=== PATIENT | male | born 1960 | race American Indian/Alaskan Native ===

== ENCOUNTER 2017-08-31 14:33 | Emergency (ER) | payer OTHER ==
[2017-08-31 14:44] VITALS: BP 120/90
--- NOTE | 2017-08-31 15:46 | Emergency Department Report ---
ED Fall HPI - General Chief Complaint: Fall Stated Complaint: BACK AND LEG PAIN DUE TO FALL Time Seen by Provider: 08/31/17 15:41 Source: patient, EMS Mode of arrival: Ambulatory - History of Present Illness Initial Comments: 56-year-old male past medical history bladder cancer hypertension presents for complaint of neck pain and headache and lower back pain and left shoulder pain status post mechanical fall. Patient states that while taking a shower he sat at the edge of the tub and slipped and fell backward onto bathroom floor. Patient hit the back of his head and the back of his neck on ground. Patient complaining of pain and stated areas. Patient is currently awake alert and oriented 3 fully lucid not in acute distress. States he was assisted by family member as he was dazed for several minutes after fall. Denies sustaining any lacerations. Patient is awake alert and oriented 3. MD Complaint: fall -: This morning Severity: moderate Context: tripped/slipped - Related Data Previous Rx's Medication Instructions Recorded Last Taken Type Acetaminophen/Codeine [Tylenol 1 tab PO Q6H PRN #10 tab 08/31/17 Unknown Rx /Codeine # 3 tab] Ibuprofen [Motrin] 600 mg PO Q8H PRN #20 tablet 08/31/17 Unknown Rx Allergies Allergy/AdvReac Type Severity Reaction Status Date / Time morphine Allergy Swelling Verified 08/31/17 14:38 ED Review of Systems ROS: Stated complaint: BACK AND LEG PAIN DUE TO FALL Other details as noted in HPI Constitutional: denies: chills, fever Eyes: denies: eye pain, eye discharge, vision change ENT: denies: ear pain, throat pain Respiratory: denies: cough, shortness of breath, wheezing Cardiovascular: denies: chest pain, palpitations Endocrine: no symptoms reported Gastrointestinal: denies: abdominal pain, nausea, diarrhea Genitourinary: denies: urgency, dysuria Musculoskeletal: denies: back pain, joint swelling, arthralgia Skin: denies: rash, lesions Neurological: denies: headache, weakness, paresthesias Psychiatric: denies: anxiety, depression Hematological/Lymphatic: denies: easy bleeding, easy bruising ED Past Medical Hx - Past Medical History Previous Medical History?: Yes Hx Hypertension: Yes Hx of Cancer: Yes (bladder) - Surgical History Past Surgical History?: Yes Additional Surgical History: Bladder tumors removed, Insertion of medication for bladder cancer - Social History Smoking Status: Current Every Day Smoker Substance Use Type: Prescribed - Medications Home Medications: Home Medications Medication Instructions Recorded Confirmed Last Taken Type Acetaminophen/Codeine [Tylenol 1 tab PO Q6H PRN #10 tab 08/31/17 Unknown Rx /Codeine # 3 tab] Ibuprofen [Motrin] 600 mg PO Q8H PRN #20 tablet 08/31/17 Unknown Rx ED Physical Exam - General Limitations: No Limitations General appearance: alert, in no apparent distress - Head Head exam: Present: atraumatic, normocephalic - Eye Eye exam: Present: normal appearance, PERRL, EOMI - ENT ENT exam: Present: mucous membranes moist - Neck Neck exam: Present: normal inspection, full ROM (neck flexion and extension intact) - Respiratory Respiratory exam: Present: normal lung sounds bilaterally. Absent: respiratory distress - Cardiovascular Cardiovascular Exam: Present: regular rate, normal rhythm. Absent: systolic murmur, diastolic murmur, rubs, gallop - GI/Abdominal GI/Abdominal exam: Present: soft, normal bowel sounds - Rectal Rectal exam: Present: deferred - Extremities Exam Extremities exam: Present: normal inspection - Expanded Upper Extremity Exam Left Shoulder Exam: Present: normal inspection, full ROM Upper Arm exam: Present: normal inspection, full ROM Elbow exam: Present: normal inspection, full ROM Forearm Wrist exam: Present: normal inspection, full ROM Hand Wrist exam: Present: normal inspection, full ROM - Back Exam Back exam: Present: normal inspection - Neurological Exam Neurological exam: Present: alert, oriented X3, CN II-XII intact, normal gait - Expanded Neurological Exam Expanded Patient oriented to: Present: person, place, time Sensory exam: Upper Extremity Light Touch: Normal, Lower Extremity Light Touch: Normal Motor strength exam: RUE: 5, LUE: 5, RLE: 5, LLE: 5 Best Eye Response (Karthik): (4) open spontaneously Best Motor Response (Karthik): (6) obeys commands Best Verbal Response (Karthik): (5) oriented [place] Total: 15 - Psychiatric Psychiatric exam: Present: normal affect, normal mood - Skin Skin exam: Present: warm, dry, intact, normal color. Absent: rash ED Course Vital Signs 08/31/17 14:38 Temperature 98 F Pulse Rate 76 Respiratory 18 Rate Blood Pressure 120/90 O2 Sat by Pulse 96 Oximetry ED Medical Decision Making - Medical Decision Making A/P: Musculoskeletal pain, contusion, minor head injury 1-x-rays and CT show no fracture 2-patient has no signs of neurological deficits on exam 3-short course analgesics 4- follow up with primary care Critical care attestation.: If time is entered above; I have spent that time in minutes in the direct care of this critically ill patient, excluding procedure time. ED Disposition Clinical Impression: Musculoskeletal pain Minor head injury without loss of consciousness Qualifiers: Encounter type: initial encounter Qualified Code(s): S09.90XA - Unspecified injury of head, initial encounter Disposition: TO HOME OR SELFCARE Is pt being admited?: No Does the pt Need Aspirin: No Condition: Stable Instructions: Concussion (ED), Minor Head Injury (ED), Musculoskeletal Pain (ED ) Prescriptions: Acetaminophen/Codeine [Tylenol /Codeine # 3 tab] 1 tab PO Q6H PRN #10 tab PRN Reason: Pain , Severe (7-10) Ibuprofen [Motrin] 600 mg PO Q8H PRN #20 tablet PRN Reason: Pain Referrals: [facility] [Provider Group] - 3-5 Days TERRANCE ESQUIVEL MD [Staff Physician] - 3-5 Days Time of Disposition: 19:02
[2017-08-31] MEDS ORDERED: PERCOCET 5/325 PO ONE (15:53)
--- NOTE | 2017-08-31 16:47 | Cat Scan Report ---
FINAL REPORT PROCEDURE: CT head without contrast. TECHNIQUE: Computerized tomography of the head was performed without contrast material. HISTORY: Headache after falling. COMPARISON: No prior studies are available for comparison. FINDINGS: The ventricles are normal in size. The gardner matter and white matter appear normal. There are no mass lesions. There is no intracranial hemorrhage. The calvarium appears intact. The mastoid air cells and visualized paranasal sinuses are clear. IMPRESSION: Normal study.
--- NOTE | 2017-08-31 17:10 | Cat Scan Report ---
FINAL REPORT PROCEDURE: CT cervical spine without contrast. TECHNIQUE: Computerized tomography of the cervical spine was performed from the skull base to T1 without contrast material. HISTORY: Neck pain after falling. COMPARISON: No prior studies are available for comparison. FINDINGS: The cervical vertebrae have normal height and alignment. There are no fractures. There is no subluxation. There is moderate disc space narrowing at C3-4, C4-5 and C5-6. There are small vertebral body osteophytes in the mid cervical spine. The spinal canal appears adequately patent. The facet joints appear satisfactory. The neural foramina appear adequately patent. The prevertebral soft tissues have normal thickness. There are cystic changes in both lung apices suggesting emphysema. IMPRESSION: Degenerative disc disease as described. No evidence of acute cervical spine injury. Cystic changes in both lung apices.
--- NOTE | 2017-08-31 18:33 | XRay Report ---
FINAL REPORT PROCEDURE: Lumbar spine. TECHNIQUE: Three views. HISTORY: Lower back pain. COMPARISON: No prior studies are available for comparison. FINDINGS: The lumbar vertebrae have normal height and alignment. There are no fractures. There is no spondylolisthesis. There is moderate disc space narrowing at L5-S1. The sacrum and sacroiliac joints are unremarkable. IMPRESSION: Degenerative disc disease at L5-S1.
--- NOTE | 2017-08-31 18:38 | XRay Report ---
FINAL REPORT PROCEDURE: XR SHOULDER 2+V LT left shoulder. TECHNIQUE: Three views. HISTORY: Left shoulder pain. COMPARISON: No prior studies are available for comparison. FINDINGS: The bones appear intact without fracture or dislocation. The joint spaces appear normal. The soft tissues are unremarkable. IMPRESSION: Normal study.
== END 2017-08-31 19:36 | disposition home or self-care (01) ==
LOC: ED 14:33
DX: S09.90XA Unspecified injury of head, initial encounter (principal); M79.1 Myalgia; I10 Essential (primary) hypertension; Z85.51 Personal history of malignant neoplasm of bladder; F17.200 Nicotine dependence, unspecified, uncomplicated; Z88.6 Allergy status to analgesic agent; W18.2XXA Fall in (into) shower or empty bathtub, initial encounter; Y93.E1 Activity, personal bathing and showering; Y99.8 Other external cause status; Y92.89 Other specified places as the place of occurrence of the external cause
CPT/HCPCS: 70450; 72100; 72125

== ENCOUNTER 2019-10-29 03:11 | Emergency (ER) | payer OTHER ==
--- NOTE | 2019-10-29 04:57 | XRay Report ---
CLINICAL DATA: fall TECHNICAL DATA: AP and lateral views lumbar spine. FINDINGS: The bone mineralization is normal. Vertebral body heights are normal. Intervertebral disc spaces are well maintained. Pedicles and spinous processes are normal in alignment. SI joints and sacrum are nor mal. IMPRESSION: Normal examination lumbar spine. Signer Name: Macario Peters MD Signed: 10/29/2019 4:52 AM Workstation Name: [id number]
--- NOTE | 2019-10-29 05:00 | Cat Scan Report ---
CT HEAD WITHOUT CONTRAST HISTORY: fall, injury COMPARISON: None TECHNIQUE: CT imaging of the head was performed in the axial, sagittal, and coronal projections and bone algori thm in axial projection in the soft tissue algorithm. All CT scans at this location are performed using CT dose reduction for ALARA by means of automated e xposure control. CONTRAST: 08/31/2017 FINDINGS: Cerebral and Cerebellar Hemispheres: Mild diffuse cerebral atrophy is present. No evidence of mass or mass effect. No midline shift. No acute hemorrhage. No acute cortical infarction. No extra-axial fluid collection. Ventricles: Normal in size and configuration for age. Osseous Structures: No significant abnormality. Visualized Paranasal Sinuses: No significant abnormality. Additional Findings: None IMPRESSION: 1. No acute intracranial abnormality. NOTE: Acute infarct may not be visible by noncontrast CT. Signer Name: Macario Peters MD Signed: 10/29/2019 4:55 AM Workstation Name: [id number]
--- NOTE | 2019-10-29 05:03 | Cat Scan Report ---
CLINICAL DATA: fall, injury TECHNICAL DATA: CT imaging of the cervical spine was performed in the axial, sagittal, and coronal projections and santosh ne algorithm in axial projection in the soft tissue algorithm. All CT scans at this location are performed using CT dose reduction for ALARA by means of automated e xposure control. FINDINGS: The ring of C1 is normal. The odontoid is normal. There is no evidence of an offset. There is no e vidence of a fracture. However, degenerative changes are present with narrowing of the C1 odontoid j unction. The spinal canal is well maintained. C2-C3: The spinal canal is well maintained. The neural foramina are normal. The vertebral bodies a re normal. The posterior elements are intact. There is no evidence of a fracture. C3-C4: Moderate intervertebral disc space narrowing is present with anterior and posterior osteophyt es. The spinal canal is well maintained. Moderate narrowing neural foraminal disease on the left. Th e vertebral bodies are normal. The posterior elements are intact. There is no evidence of a fractur e C4-C5: Moderate intervertebral disc space narrowing is present with anterior and posterior osteophyt es. The spinal canal is well maintained. The neural foramina are normal. The vertebral bodies are normal. The posterior elements are intact. There is no evidence of a fracture C5-C6: Moderate intervertebral disc space narrowing is present with anterior and posterior osteophyte s. The spinal canal is well maintained. The neural foramina are normal. The vertebral bodies are n ormal. The posterior elements are intact. There is no evidence of a fracture. C6-C7: The spinal canal is well maintained. The neural foramina are normal. The vertebral bodies a re normal. The posterior elements are intact. There is no evidence of a fracture. C7-T1: The spinal canal is well maintained. The neural foramina are normal. The vertebral bodies a re normal. The posterior elements are intact. There is no evidence of a fracture. IMPRESSION: No acute traumatic abnormality. Degenerative changes as noted. Signer Name: Macario Peters MD Signed: 10/29/2019 4:58 AM Workstation Name: [id number]
--- NOTE | 2019-10-29 06:38 | Emergency Department Report ---
HPI - General Chief Complaint: Fall Time Seen by Provider: 10/29/19 06:09 - HPI HPI: This is a 58-year-old male who presents to the emergency department after falling in the bathtub last night. The patient says he slipped and fell backwards. He did hit his head but denies loss of consciousness. Patient complains of pain to the lower back that radiates down both of his legs to the knees. He denies any problems with bowel or bladder, numbness or paresthesias or any neurological deficits. He denies any obvious deformities. Patient has a history of bladder cancer in remission, hypertension. He has not taken anything for symptoms prior to presentation. Patient arrived here about 3 hours prior to my shift starting and is already had some images obtained. At the time of my examination the patient had to use the restroom and was seen getting up and walking to the bathroom without any signs of instability. ED Past Medical Hx - Past Medical History Previous Medical History?: Yes Hx Hypertension: Yes Hx of Cancer: Yes (bladder ca in remission) - Surgical History Past Surgical History?: Yes Additional Surgical History: Bladder tumors removed, Insertion of medication for bladder cancer - Social History Smoking Status: Never Smoker Substance Use Type: None - Medications Home Medications: Home Medications Medication Instructions Recorded Confirmed Last Taken Type Acetaminophen/Codeine [Tylenol 1 tab PO Q6H PRN #10 tab 08/31/17 Unknown Rx /Codeine # 3 tab] Ibuprofen [Motrin 600 MG tab] 600 mg PO Q8H PRN #20 tablet 10/29/19 Unknown Rx ED Review of Systems ROS: Stated complaint: FALL IN TUB Other details as noted in HPI Comment: All other systems reviewed and negative Constitutional: denies: chills, fever Eyes: denies: eye pain, vision change ENT: denies: ear pain, throat pain Respiratory: denies: cough, shortness of breath Cardiovascular: denies: chest pain, palpitations Gastrointestinal: denies: abdominal pain, vomiting Genitourinary: denies: dysuria, discharge Musculoskeletal: back pain, arthralgia, myalgia Skin: denies: rash, lesions Neurological: denies: weakness, numbness, paresthesias Physical Exam - Physical Exam Vital Signs: Vital Signs 10/29/19 03:16 Temperature 97.8 F Pulse Rate 75 Respiratory 16 Rate Blood Pressure 132/102 O2 Sat by Pulse 96 Oximetry Physical Exam: GENERAL: The patient is well-developed well-nourished. HENT: Normocephalic. Atraumatic. Patient has moist mucous membranes. EYES: Extraocular motions are intact. NECK: Supple. Trachea is midline. No tenderness to palpation. CHEST/LUNGS: Clear to auscultation. There is no respiratory distress noted. HEART/CARDIOVASCULAR: Regular. There is no tachycardia. There is no murmur. ABDOMEN: Abdomen is soft, nontender. Patient has normal bowel sounds. There is no abdominal distention. SKIN: Skin is warm and dry. NEURO: The patient is awake, alert, and oriented. The patient is cooperative. The patient has no focal neurologic deficits. Normal speech. MUSCULOSKELETAL: There is some tenderness to palpation to compression of the pelvis but otherwise no acute deformity. There is no limitation range of motion. BACK: There is both midline and bilateral paraspinal lumbar tenderness to palpation. ED Course Vital Signs 10/29/19 03:16 Temperature 97.8 F Pulse Rate 75 Respiratory 16 Rate Blood Pressure 132/102 O2 Sat by Pulse 96 Oximetry ED Medical Decision Making - Radiology Data Radiology results: report reviewed, image reviewed interpreted by me: X-ray of the bilateral femur, pelvis and lumbar spines do not show any fractures, dislocations, subluxation, or any acute process. CT HEAD WITHOUT CONTRAST HISTORY: fall, injury COMPARISON: None TECHNIQUE: CT imaging of the head was performed in the axial, sagittal, and coronal projections and bone algorithm in axial projection in the soft tissue algorithm. All CT scans at this location are performed using CT dose reduction for ALARA by means of automated exposure control. CONTRAST: 08/31/2017 FINDINGS: Cerebral and Cerebellar Hemispheres: Mild diffuse cerebral atrophy is present. No evidence of mass or mass effect. No midline shift. No acute hemorrhage. No acute cortical infarction. No extra-axial fluid collection. Ventricles: Normal in size and configuration for age. Osseous Structures: No significant abnormality. Visualized Paranasal Sinuses: No significant abnormality. Additional Findings: None IMPRESSION: 1. No acute intracranial abnormality. CT imaging of the cervical spine was performed in the axial, sagittal, and coronal projections and bone algorithm in axial projection in the soft tissue algorithm. All CT scans at this location are performed using CT dose reduction for ALARA by means of automated exposure control. FINDINGS: The ring of C1 is normal. The odontoid is normal. There is no evidence of an offset. There is no evidence of a fracture. However, degenerative changes are present with narrowing of the C1 odontoid junction. The spinal canal is well maintained. C2-C3: The spinal canal is well maintained. The neural foramina are normal. The vertebral bodies are normal. The posterior elements are intact. There is no evidence of a fracture. C3-C4: Moderate intervertebral disc space narrowing is present with anterior and posterior osteophytes. The spinal canal is well maintained. Moderate narrowing neural foraminal disease on the left. The vertebral bodies are normal. The posterior elements are intact. There is no evidence of a fracture C4-C5: Moderate intervertebral disc space narrowing is present with anterior and posterior osteophytes. The spinal canal is well maintained. The neural foramina are normal. The vertebral bodies are normal. The posterior elements are intact. There is no evidence of a fracture C5-C6: Moderate intervertebral disc space narrowing is present with anterior and posterior osteophytes. The spinal canal is well maintained. The neural foramina are normal. The vertebral bodies are normal. The posterior elements are intact. There is no evidence of a fracture. C6-C7: The spinal canal is well maintained. The neural foramina are normal. The vertebral bodies are normal. The posterior elements are intact. There is no evidence of a fracture. C7-T1: The spinal canal is well maintained. The neural foramina are normal. The vertebral bodies are normal. The posterior elements are intact. There is no evidence of a fracture. IMPRESSION: No acute traumatic abnormality. Degenerative changes as noted. - Medical Decision Making This patient presents to the emergency department with a complaint of some low back pain radiating down the bilateral legs after a slip and fall in the bathtub. Patient had a CT scan of the head and cervical spine that was completed prior to my shift starting this morning but they resulted as negative for any fracture, subluxation, bleed, shift, mass, ischemia, or any other acute process. X-rays were also done of the lumbar spine, bilateral femur and pelvis that also did not show any fracture, dislocation, subluxation, or any acute processes. The patient was seen ambulatory in the emergency department and both appears and feels stable. Vital signs have been reassuring throughout his ED course. He will be discharged home to follow-up with primary care and is also been given referrals for both an orthopedist and local neurosurgery. He will return to the emergency department with any worsening of his symptoms or with any acute distress. Critical Care Time: No Critical care attestation.: If time is entered above; I have spent that time in minutes in the direct care of this critically ill patient, excluding procedure time. ED Disposition Clinical Impression: Bilateral leg pain Fall in bathtub Qualifiers: Encounter type: initial encounter Qualified Code(s): W18.2XXA - Fall in (into) shower or empty bathtub, initial encounter Back pain Qualifiers: Back pain location: low back pain Chronicity: unspecified Back pain laterality: bilateral Sciatica presence: with sciatica Sciatica laterality: bilateral sciatica Qualified Code(s): M54.42 - Lumbago with sciatica, left side; M54.41 - Lumbago with sciatica, right side Closed head injury Qualifiers: Encounter type: initial encounter Qualified Code(s): S09.90XA - Unspecified injury of head, initial encounter Disposition: TO HOME OR SELFCARE Is pt being admited?: No Condition: Stable Instructions: Sciatica (ED), Arthralgia (ED), Back Pain (ED), Fall Prevention (ED) Additional Instructions: Please follow-up with your primary care physician in the next few days. Return to the emergency department with any worsening of your symptoms or with any acute distress. I have given you a referral for 2 different local orthopedic groups, Dr. Tapia and [facility], to follow-up regarding your back and leg pains. I have also given you a referral for a local neurosurgeon, Dr. Wilder, who can also evaluate you for your back pains. Prescriptions: Ibuprofen [Motrin 600 MG tab] 600 mg PO Q8H PRN #20 tablet PRN Reason: Pain Referrals: [facility] [Primary Care Provider] - 3-5 Days ROWENA TAPIA MD [Staff Physician] - 3-5 Days [facility] [Provider Group] - 3-5 Days ANAMARIA CALZADA II, MD [Staff Physician] - 3-5 Days Time of Disposition: 07:33
[2019-10-29 07:05] VITALS: BP 113/82
--- NOTE | 2019-10-29 07:08 | XRay Report ---
HISTORY:fall, leg pain COMPARISON: None. TECHNIQUE: AP lateral and obliques views were obtained FINDINGS: Bones: No fracture or dislocation. Joint spaces: Maintained. Soft tissues: No significant abnormality. Additional findings: None. IMPRESSION: 1. No significant abnormality. Signer Name: Macario Peters MD Signed: 10/29/2019 7:04 AM Workstation Name: [id number]
--- NOTE | 2019-10-29 07:09 | XRay Report ---
PELVIS HISTORY: COMPARISON: None. TECHNIQUE: AP radiograph(s) of the pelvis obtained. FINDINGS: Bones: No fracture or dislocation. Joint spaces: Maintained. Soft Tissues: No significant abnormality. Additional findings: None. IMPRESSION: 1. No acute abnormality. Signer Name: Macario Peters MD Signed: 10/29/2019 7:05 AM Workstation Name: [id number]
== END 2019-10-29 09:58 | disposition home or self-care (01) ==
LOC: ED 03:11
DX: M79.605 Pain in left leg (principal); M79.604 Pain in right leg; S09.90XA Unspecified injury of head, initial encounter; M54.9 Dorsalgia, unspecified; I10 Essential (primary) hypertension; Z79.899 Other long term (current) drug therapy; W18.2XXA Fall in (into) shower or empty bathtub, initial encounter; Y93.89 Activity, other specified; Y92.89 Other specified places as the place of occurrence of the external cause; Y99.8 Other external cause status
CPT/HCPCS: 70450; 72100; 72125; 72170